=== PATIENT | female | born 1985 | race Caucasian/White ===

== ENCOUNTER 2018-02-07 17:29 | Emergency (ER) | payer OTHER ==
[~2018-02-07] VITALS: Ht 154.9 cm; Wt 61.2 kg
== END 2018-02-07 22:01 | disposition home or self-care (01) ==
LOC: ER 17:29
DX: G40.802 Other epilepsy, not intractable, without status epilepticus (principal)

== ENCOUNTER 2020-10-03 08:37 | Outpatient (CLI) | payer OTHER | END 2020-10-03 08:39 | disposition home or self-care (01) | LOC: NUCLEAR 08:37 | PROVIDERS: ATTEND Internal Medicine Cardiovascular Disease | DX: G45.8 Other transient cerebral ischemic attacks and related syndromes (principal) ==

== ENCOUNTER 2022-06-03 08:04 | Outpatient (CLI) | payer OTHER ==
[~2022-06-03 08:04] MED LIST: NAPR500T14 PO; SKELAXIN800 MG PO
== END 2022-06-03 08:33 | disposition home or self-care (01) ==
LOC: TOM 08:04
PROVIDERS: ATTEND Internal Medicine Gastroenterology
DX: R10.32 Left lower quadrant pain (principal)